=== PATIENT | male | born 1985 | race Two or more races ===

== ENCOUNTER 2025-08-27 15:14 | Emergency (ER) | payer OTHER ==
[~2025-08-27] VITALS: Ht 167.6 cm; Wt 77.1 kg
[2025-08-27 15:31] VITALS: BP 101/59; TEMP 98; O2SAT 96
[2025-08-27] MEDS ORDERED: SULF1TAB48 PO (15:43)
== END 2025-08-27 16:05 | disposition home or self-care (01) ==
LOC: ER 16:03
DX: S91.311A Laceration without foreign body, right foot, initial encounter (principal); W26.0XXA Contact with knife, initial encounter; Y93.89 Activity, other specified; Y92.89 Other specified places as the place of occurrence of the external cause; Y99.8 Other external cause status
CPT/HCPCS: 12002; 99283; A6403